=== PATIENT | male | born 1995 | race Caucasian/White ===

== ENCOUNTER 2022-01-01 16:46 | Outpatient (REF) | payer MEDICAID, SELFPAY ==
[2022-01-03 14:52] LABS: Chlamydia Result Negative (Negative)
[2022-01-03 16:04] LABS: GC Result Positive (Negative)
== END 2022-01-01 16:47 | disposition home or self-care (01) ==
LOC: NCHCN 16:46
PROVIDERS: Visit Provider Nurse Practitioner Family
DX: Z00.00 Encounter for general adult medical examination without abnormal findings (principal); N39.0 Urinary tract infection, site not specified
CPT/HCPCS: 87491; 87591; 87086